=== PATIENT | male | born 2000 | race Caucasian/White ===

== ENCOUNTER 2019-03-31 00:43 | Observation (INO) | payer OTHER ==
[~2019-03-31] VITALS: Ht 182.9 cm; Wt 89.4 kg
[2019-03-31 00:45] VITALS: BP 139/82
[2019-03-31 01:25] LABS: URINE BILIRUBIN 1+ (Negative); URINE BLOOD NEGATIVE (Negative); URINE CLARITY TURBID; URINE COLOR YELLOW; URINE GLUCOSE-RANDOM* NEGATIVE (Negative); URINE KETONES 1+ (Negative); URINE LEUKOCYTES-REFLEX NEGATIVE (Negative); URINE NITRITE-REFLEX NEGATIVE (Negative); URINE PROTEIN (DIPSTICK) TRACE (Negative); URINE SPECIFIC GRAVITY >= 1.030 (1.005-1.035)
[2019-03-31 02:07] LABS: ABSOLUTE NEUTROPHILS 12.5 thou/uL (1.4-8.2); BASOPHILS 0.2 % (0.0-2.0); EOSINOPHILS 0.2 % (0.0-3.0); HEMATOCRIT 38.4 % (37.0-47.0); HEMOGLOBIN 13.4 gm/dL (12.0-15.0); LYMPHOCYTES 5.9 % (24.0-44.0); MCHC 34.9 g/dL (28.0-37.0); MCV 85.9 fL (80.0-100.0); MONOCYTES 4.7 % (1.0-8.0); PLATELET COUNT 229 thou/uL (150-400); RBC 4.47 mil/uL (4.20-5.00); RDW 13.3 % (10.5-14.5)
[2019-03-31 02:09] LABS: POTASSIUM 3.9 mmol/L (3.5-5.1)
[2019-03-31 02:15] LABS: ALBUMIN 4.4 g/dL (3.4-5.0); TOTAL BILIRUBIN 0.7 mg/dL (<0.1-1.0); TOTAL PROTEIN 8.1 g/dL (6.4-8.2)
[2019-03-31 06:30] VITALS: BP 109/65
[2019-03-31 07:00] VITALS: BP 110/48
--- NOTE | 2019-03-31 07:52 | NUR ---
LAB CALLED CRITICAL BLOOD CULTURE( GRAM POSITIVE COCCI).LINOLEUM MECHANIC ON DUTY NOTIOFIED,NO ORDER NOTED.REPORT GIVEN TO AM NURSE.
--- NOTE | 2019-03-31 08:34 | NUR ---
PT TAKEN TO SURGERY APPROX 08.
[2019-03-31] MEDS ORDERED: SENNA-TIME S T1 EACH PO (09:38)
[2019-03-31] MEDS ORDERED: IBUPROFEN 200200 M1 PO (09:38)
[2019-03-31] MEDS ORDERED: ACETAMINOPHEN325 M1 PO (09:38)
[2019-03-31] MEDS ORDERED: MIRALAX17 GM PO (09:38)
[2019-03-31] MEDS ORDERED: OXYCODONE HCL 55 MG PO (09:38)
[2019-03-31 11:00] VITALS: BP 114/68
--- NOTE | 2019-03-31 11:59 | NUR ---
Patient is resting well. LSCTA, BS x's 4, abdomen is soft et non-tender. Incision sites are without redness, warmth or edema. Friend is at bedside, translates for patient. Will continue to monitor.
--- NOTE | 2019-03-31 14:42 | NUR ---
ASSESSMENT-PT LIVES IN AN APT WITH HIS FRIEND. PRIOR TO ADMISSION PT INDEPENDENT OF ADLS AND AMBULATION. PT GIVEN 2 PRESCRIPTION DISCOUNT CARDS AND SAFETY NET PACKET FOR RESOURCES & MEDICAL FOLLOW-UP. NO DC CONCERNS VOICED AT THIS TIME.
[2019-03-31 18:13] VITALS: BP 114/68
[2019-03-31 18:30] VITALS: BP 114/68
--- NOTE | 2019-03-31 19:10 | NUR ---
Patient arrived on unit after Lap Appendectomy surgery at approximately 1100. Vital sisns WNL's, LSCTA, BS x's 4, abdomen round et tender as expected. Lap sites are without redness, edema et drainage. Pain minimally controlled with Oxycodone 5mg po. Patient able to void without difficulty; drinking plenty of water et other fluids. Patient consuming foods without difficulty/complaint. Discharged at 1810 with belongings, Discharge Instructions et script for pain medication. Patient signed Discharge Instructions after verbalizing an understanding of all of these instructions. Friend was present to translate and take patient home.
--- NOTE | 2019-04-01 16:06 | PATH ---
[facility] [place] [address] PATHOLOGY RPT PROCEDURE Name: BEATRIZ LIRA Room #: 423-1 TYLER Hutson#: [id number] Admission: 03/31/19 Date of : 89 Discharge: 03/31/19 Report #: [id number] Path Case #: [id number] [facility] Accession Number: [id number] . 01 Material submitted: . appendix - APPENDECTOMY . 01 Clinical history: . Acute appendicitis . 02 Diagnosis: Appendix, appendectomy: - Acute appendicitis and periappendicitis. (PAUL:kenya; 04/01/2019) QMS/04/01/2019 . 02 Electronically signed: . Ye Mathew MD, Pathologist NPI- [id number] . 01 Gross description: . The specimen is received in formalin, labeled "Beatriz Lira appendectomy". Received is a vermiform appendix measuring 10.7 cm in length by up to up to 1.0 cm in diameter with a moderate amount of attached mesoappendix. The serosal surface is pink-livingston in appearance with moderate vasculature and a slight amount of overlying exudate near the proximal margin. The proximal margin is inked. Sectioning reveals a patent to dilated lumen filled with blood coagulum. The specimen is submitted representatively A1 and A2, with the proximal margin and bisected tip submitted in cassette A1. (CAA; 03/31/2019) QAC/QAC . 02 Pathologist provided ICD-10: K35.80 . 02 CPT . 336619 Specimen Comment: A courtesy copy of this report has been sent to Specimen Comment: [phone], . Specimen Comment: Report sent to and Performed at: [address] [id number] MD Jaciel Magaña MD Phone: [phone] Performed at: [address] [address] PATHOLOGY RPT PROCEDURE Name: BEATRIZ LIRA Room #: 423-1 TYLER Hutson#: [id number] Admission: 03/31/19 Date of : 89 Discharge: 03/31/19 Report #: [id number] Path Case #: [id number] [address] [place] [id number] MD Swathi Patrick MD Phone: [phone]
== END 2019-03-31 19:00 | disposition home or self-care (01) ==
LOC: EDSEX 00:43 → ER 00:43 → EROBS 05:11 → 4E 06:55
PROVIDERS: Emergency Medicine; ADMIT Surgery
DX: K85.90 Acute pancreatitis without necrosis or infection, unspecified (principal); D72.829 Elevated white blood cell count, unspecified; R11.2 Nausea with vomiting, unspecified
CPT/HCPCS: 50010; 50101; 50249; 50411; 50455; 50555; 50558; 50739; 50740; 51489; 52265; 52266; 53307; 53310; 53312; 54022; 54118; 56525; 56526; 62110; 62900; 70005

== ENCOUNTER 2019-04-16 22:16 | Emergency (ER) | payer OTHER ==
[~2019-04-16] VITALS: Ht 190.5 cm; Wt 88.9 kg
[~2019-04-16 22:16] MED LIST: ACETAMINOPHEN325 M1 PO; IBUPROFEN 200200 M1 PO; MIRALAX17 GM PO; OXYCODONE HCL 55 MG PO; SENNA-TIME S T1 EACH PO
[2019-04-16 22:20] VITALS: BP 106/70
[2019-04-16] MEDS ORDERED: BENADRYL ITCH28.3 G1 TOP (23:15)
[2019-04-16] MEDS ORDERED: CENTANY30 GM TOP (23:15)
== END 2019-04-16 23:30 | disposition home or self-care (01) ==
LOC: ER 22:16
DX: Z48.01 Encounter for change or removal of surgical wound dressing (principal); G43.909 Migraine, unspecified, not intractable, without status migrainosus; Z90.49 Acquired absence of other specified parts of digestive tract

== ENCOUNTER 2020-04-12 19:09 | Emergency (ER) | payer OTHER ==
[~2020-04-12] VITALS: Ht 182.9 cm; Wt 83.9 kg
[~2020-04-12 19:09] MED LIST changes: +BENADRYL ITCH28.3 G1 TOP; +CENTANY30 GM TOP
[2020-04-12] MEDS ORDERED: MOBIC15 MG PO (21:15)
[2020-04-12 21:38] VITALS: BP 98/46
== END 2020-04-12 21:42 | disposition home or self-care (01) ==
LOC: ER 19:09
DX: M25.511 Pain in right shoulder (principal); R10.32 Left lower quadrant pain; G43.909 Migraine, unspecified, not intractable, without status migrainosus; Z90.49 Acquired absence of other specified parts of digestive tract; Z79.899 Other long term (current) drug therapy; V43.62XA Car passenger injured in collision with other type car in traffic accident, initial encounter; Y93.89 Activity, other specified; Y92.488 Other paved roadways as the place of occurrence of the external cause; Y99.8 Other external cause status